=== PATIENT | female | born 1950 | race Caucasian/White ===

== ENCOUNTER → 2020-03-08 | Outpatient (CLI) | payer BC, MEDICARE ==
[~2020-03-08] MED LIST: KETOROLAC10 MG PO
== END ==
LOC: COL.RAD 09:21
DX: T84.53XA Infection and inflammatory reaction due to internal right knee prosthesis, initial encounter (principal); M86.8X6 Other osteomyelitis, lower leg; Z96.651 Presence of right artificial knee joint
CPT/HCPCS: A9503

== ENCOUNTER → 2020-05-25 | Outpatient (CLI) | payer BC, MEDICARE ==
[~2020-05-25] MED LIST changes: +ARICEPT 5MG PO; +ASPIRIN 81M81 MG/TA2 PO; +BLUE-EMU LIDOC1 EACH TP; +CENTRUM1 TA1 PO; +ILOTYCIN5 MG/GM; +LAMICTAL 25MG T25 MG PO; +LANTUS SOLOS100 U/ML SQ; +LYRICA 50MG CAP50 MG PO; +NOVOLOG FLEX100 U/ML SQ; +PREDNISONE20 MG PO; +PRINIVIL40 MG PO; +PROCARDIA XL 3030 MG PO; +PROVENTIL0.09 MG/A1 IH; +SINGULAIR 110 MG/TAB PO; +TAGAMET800 MG PO; +TOPROL XL 25MG25 MG PO; +TOPROL XL100 MG PO; +TRESIBA FL100 UNIT/1 SQ; +TYLENOL W/COD1 UDTAB PO; +UROCIT-K 1010 MEQ PO; +ZETIA 10MG TAB10 MG PO; +ZYRTEC 10MG10 MG PO
== END ==
LOC: COL.RAD 11:47
DX: G47.33 Obstructive sleep apnea (adult) (pediatric) (principal); Z99.89 Dependence on other enabling machines and devices; Z86.69 Personal history of other diseases of the nervous system and sense organs
CPT/HCPCS: A9585

== ENCOUNTER → 2020-06-20 | Outpatient (CLI) | payer BC, MEDICARE | LOC: COL.PUL 05-31 13:00 | DX: R06.02 Shortness of breath (principal) | CPT/HCPCS: J7674 ==

== ENCOUNTER 2020-07-27 11:17 | Inpatient (IN) | payer BC ==
[~2020-07-27] VITALS: Ht 149.9 cm; Wt 94.1 kg
[~2020-07-27 11:17] MED LIST changes: -ARICEPT 5MG PO; -ASPIRIN 81M81 MG/TA2 PO; -BLUE-EMU LIDOC1 EACH TP; -CENTRUM1 TA1 PO; -ILOTYCIN5 MG/GM; -LAMICTAL 25MG T25 MG PO; -LANTUS SOLOS100 U/ML SQ; -LYRICA 50MG CAP50 MG PO; -NOVOLOG FLEX100 U/ML SQ; -PREDNISONE20 MG PO; -PRINIVIL40 MG PO; -PROCARDIA XL 3030 MG PO; -PROVENTIL0.09 MG/A1 IH; -SINGULAIR 110 MG/TAB PO; -TAGAMET800 MG PO; -TOPROL XL 25MG25 MG PO; -TOPROL XL100 MG PO; -TRESIBA FL100 UNIT/1 SQ; -TYLENOL W/COD1 UDTAB PO; -UROCIT-K 1010 MEQ PO; -ZETIA 10MG TAB10 MG PO; -ZYRTEC 10MG10 MG PO
[2020-07-27 12:27] LABS: COLLECTION METHOD CLEAN CATCH
[2020-07-27 12:44] LABS: MUCOUS Present /lpf; PH 6 (5-8); URINE APPEARANCE Hazy; URINE BACTERIA None Seen /hpf; URINE BILIRUBIN Negative (NEGATIVE); URINE BLOOD 1+ (NEGATIVE); URINE COLOR Yellow; URINE GLUCOSE Negative (NEGATIVE); URINE KETONE Negative (NEGATIVE); URINE LEUKOCYTE ESTERASE 1+ (NEGATIVE); URINE NITRATE Negative (NEGATIVE); URINE PROTEIN(semi-quant) 2+ (NEGATIVE); URINE UROBILINOGEN Negative (NEGATIVE)
[2020-07-27 13:05] LABS: HEMATOCRIT 47.2 % (37.0-47.0); HEMOGLOBIN 15.7 g/dl (12.5-16.0); MEAN CELL VOLUME 94 fl (80.0-100.0); MEAN CORPUSCULAR HEMOGLOBIN 31 pg (27.0-31.0); MEAN CORPUSCULAR HGB CONC 33 g/dl (33.0-37.0); MEAN PLATELET VOLUME 10.2 fl (7.4-10.4); PLATELET COUNT 310 K/mm3 (130-400); RED BLOOD COUNT 5.04 M/mm3 (4.10-5.30)
[2020-07-27 13:18] LABS: ALANINE AMINOTRANSFERASE 30 U/L (4-34); ALBUMIN 4.7 gm/dL (3.5-5.0); ALKALINE PHOSPHATASE 85 U/L (50-136); ANION GAP 5 mmol/L (7-16); AST,SGOT 42 U/L (15-37); BILIRUBIN,TOTAL 0.9 mg/dL (0.0-1.0); BLOOD UREA NITROGEN 28 mg/dL (7-17); CALCIUM 9.5 mg/dL (8.4-10.2); CARBON DIOXIDE 29 mmol/L (22-30); CHLORIDE 108 mmol/L (98-107); CREATININE, serum 1.47 (0.52-1.25); GLUCOSE 57 mg/dL (74-106); POTASSIUM 4.2 mmol/L (3.4-5.0); SODIUM 141 mmol/L (137-145); TOTAL PROTEIN 8.1 gm/dL (6.4-8.2)
[2020-07-27 13:35] LABS: LYMPHOCYTE 8 % (20.0-51.0); NEUTROPHILS 80 % (42.0-75.2); PLATELET ESTIMATE NORMAL (NORMAL)
[2020-07-27 13:40] LABS: LIPASE 140 U/L (23-300)
[2020-07-27 13:41] LABS: C-REACTIVE PROTEIN < 0.5 mg/dL (0.0-0.9)
[2020-07-27] MEDS ORDERED: LANTUS SOLOS100 U/ML SQ (14:47)
[2020-07-27] MEDS ORDERED: LYRICA 50MG CAP50 MG PO (14:47)
[2020-07-27] MEDS ORDERED: ZYRTEC 10MG10 MG PO (14:48)
[2020-07-27] MEDS ORDERED: TAGAMET800 MG PO (14:48)
[2020-07-27] MEDS ORDERED: SINGULAIR 110 MG/TAB PO (14:48)
[2020-07-27] MEDS ORDERED: ILOTYCIN5 MG/GM (14:49)
[2020-07-27] MEDS ORDERED: ARICEPT 5MG PO (14:50)
[2020-07-27] MEDS ORDERED: ZETIA 10MG TAB10 MG PO (14:50)
[2020-07-27] MEDS ORDERED: PRINIVIL40 MG PO (14:51)
[2020-07-27] MEDS ORDERED: UROCIT-K 1010 MEQ PO (14:52)
[2020-07-27] MEDS ORDERED: PROCARDIA XL 3030 MG PO (14:53)
[2020-07-27] MEDS ORDERED: PROVENTIL0.09 MG/A1 IH (14:54)
[2020-07-27] MEDS ORDERED: NOVOLOG FLEX100 U/ML SQ (14:55)
[2020-07-27] MEDS ORDERED: TOPROL XL100 MG PO (14:56)
[2020-07-27] MEDS ORDERED: ASPIRIN 81M81 MG/TA2 PO (14:57)
[2020-07-27] MEDS ORDERED: CENTRUM1 TA1 PO (14:57)
[2020-07-27 17:28] VITALS: BP 129/71; PULSE 72; TEMP 99
--- NOTE | 2020-07-27 17:57 | NUR ---
PT PLEASANT, AOX4, STEADY WITH A CANE, HAS GLASSES, HELPED PT ORDER DINNER, REPORTS PAIN 3/10 IN L FLANK, NO OTHER NEEDS AT THIS TIME.
[2020-07-27 19:26] VITALS: BP 117/61; PULSE 73; TEMP 97.4
--- NOTE | 2020-07-27 20:00 | NUR ---
Report received, assumed care for hourly shift. Assessment complete. A&Ox3. Denies pain/nausea/shortness of breath VS stable. Right upper arm PICC with LR@125ml/hr infusing without difficulty. Plan of care discussed for this shift to include HS meds/pain control/calling for quesitons/concerns. Verbalizes understanding/denies needs. Call light in reach. Will monitor
--- NOTE | 2020-07-27 23:30 | NUR ---
pt has her own cpap but is refusing to wear it at this time
[2020-07-27 23:37] VITALS: BP 145/82; PULSE 76; TEMP 98
[2020-07-28 04:43] VITALS: BP 145/74; PULSE 64; TEMP 98.2
--- NOTE | 2020-07-28 05:51 | NUR ---
Rested off and on this shift. Refused to wear CPAP stating she doesnt like to wear it when she feels sick. O2@2L/NC during sleep to maintain O2 sats in the mmid 90s. Denied pain/nausea/shortness of breath. VS remained stable. Denies current needs. Call light in reach. Will monitor.
[2020-07-28 06:48] LABS: BASO # 0.1 (0.0-0.2); BASO % 0.6 % (0.0-2.0); EOS # 0.2 (0.0-0.7); EOS % 1.5 % (0-4.0); GRAN # 7.8 (1.4-6.5); GRAN % 69.2 % (42.2-75.2); HEMOGLOBIN 14.5 g/dl (12.5-16.0); LYMPH # 1.8 (1.2-3.4); LYMPH % 16.1 % (20.0-51.0); MEAN CELL VOLUME 96 fl (80.0-100.0); MEAN CORPUSCULAR HEMOGLOBIN 31 pg (27.0-31.0); MEAN CORPUSCULAR HGB CONC 32 g/dl (33.0-37.0); MEAN PLATELET VOLUME 10.9 fl (7.4-10.4); MONO # 1.4 (0.1-0.6); PLATELET COUNT 266 K/mm3 (130-400); RED BLOOD COUNT 4.71 M/mm3 (4.10-5.30); REDCELL DISTRIBUTION WIDTH-CV 13.1 % (11.5-14.5)
[2020-07-28 07:00] LABS: CALCIUM 8.5 mg/dL (8.4-10.2); CREATININE, serum 1.69 (0.52-1.25); POTASSIUM 4.1 mmol/L (3.4-5.0)
[2020-07-28 07:09] LABS: PHOSPHOROUS 3.4 mg/dL (2.5-4.5)
[2020-07-28 08:27] VITALS: BP 141/72; PULSE 74; TEMP 98.5
--- NOTE | 2020-07-28 10:22 | NUR ---
First visit from the sewing supervisor. No needs right now.
[2020-07-28 12:00] VITALS: BP 133/63; PULSE 64; TEMP 98.5
[2020-07-28 17:07] VITALS: BP 160/77; PULSE 69; TEMP 97.8
--- NOTE | 2020-07-28 19:15 | NUR ---
PT DENIES PAIN, N,V, PT REPORTS DIAHHREA HAS RESOLVED ON ITS OWN FROM THIS MORNING. FLUIDS INFUSING VIA PICC MISBAH, BED LOW. CALL LIGHT WITHIN REACH.
[2020-07-28 20:14] VITALS: BP 152/67; PULSE 70; TEMP 99.7
[2020-07-28 23:58] VITALS: BP 140/65; PULSE 80
--- NOTE | 2020-07-29 02:44 | NUR ---
PT IN BED. NO N/V. MORPHINE FOR PAIN TO LEFT FLANK. PT DENIES PAIN ON RIGHT SIDE R/T KIDNEY STONE.
[2020-07-29 03:53] VITALS: BP 144/61; PULSE 71; TEMP 98.8
--- NOTE | 2020-07-29 06:50 | NUR ---
Report with HAN Lovelace. Pt resting in bed with eyes closed, resp even and unlabored. IVF's infusing per orders. Call light in reach.
[2020-07-29 06:51] LABS: BASO # 0.1 (0.0-0.2); BASO % 0.6 % (0.0-2.0); EOS # 0.2 (0.0-0.7); EOS % 2.2 % (0-4.0); GRAN # 5.4 (1.4-6.5); GRAN % 65.9 % (42.2-75.2); HEMATOCRIT 39.9 % (37.0-47.0); LYMPH # 1.6 (1.2-3.4); LYMPH % 19.1 % (20.0-51.0); MEAN CELL VOLUME 97 fl (80.0-100.0); MEAN CORPUSCULAR HEMOGLOBIN 32 pg (27.0-31.0); MEAN CORPUSCULAR HGB CONC 33 g/dl (33.0-37.0); MEAN PLATELET VOLUME 10.6 fl (7.4-10.4); MONO % 11.8 % (1.7-9.3); PLATELET COUNT 183 K/mm3 (130-400); RED BLOOD COUNT 4.11 M/mm3 (4.10-5.30); REDCELL DISTRIBUTION WIDTH-CV 12.9 % (11.5-14.5)
[2020-07-29 07:12] LABS: CALCIUM 7.8 mg/dL (8.4-10.2); CREATININE, serum 1.31 (0.52-1.25); POTASSIUM 4.1 mmol/L (3.4-5.0)
[2020-07-29 07:29] VITALS: BP 148/65; PULSE 68; TEMP 98.3
--- NOTE | 2020-07-29 11:00 | NUR ---
Pt resting in bed with heat pack in place. Recently administered PRN Flexeril but pt requesting pain medication as well. PRN Morphine administered per orders. No further needs reported. Call light in reach.
--- NOTE | 2020-07-29 15:00 | NUR ---
Plan is to return home or go to a skilled placement. JOSR met in room with the patient and DTR Hortencia. Patient gave permission for me to discuss care information infront of DTR. Hortencia is . GUSTAVO is daughter Es but Hortencia is care support. Patient reports that she uses [facility] for medications. Dr. Marks is PCP, and other specialist is Dr. arteaga, Dr. Arevalo, Dr. Bailey. Patient reports that uses a cpap prn, cane prn. Patient shares that she is concerned with feeling tired and not received the care that she needs. Patient reports that she is in pain and does not believe it is being addressed. Patient indicated that her insulin is not being given the way she needs it. SW educated on services and complaint structure and notified her about speaking with the bunk house worker about her concerns. Notifed house to visit with her. Will continue to follow for care support.
[2020-07-29 16:33] VITALS: BP 159/62; PULSE 84; TEMP 98.3
--- NOTE | 2020-07-29 17:00 | NUR ---
Pt remains sitting up in chair with external catheter in place, denies pain or needs at this time. Supper being delivered soon. Pt with intermittent confusion that worsens when pt more tired. Otherwise uneventful shift. Call light in reach. Chair alarm on.
--- NOTE | 2020-07-29 18:30 | NUR ---
Sched abx administered per orders. Pt sitting up in bed, no facial grimace, resp even and unlabored. Pt reports pain medicine and heat pad have helped decrease flank pain. Otherwise uneventful shift. NO further needs reported. Call light in reach.
[2020-07-29 20:00] VITALS: BP 147/63; PULSE 80; TEMP 98.2
[2020-07-30] VITALS: BP 132/60; PULSE 70; TEMP 98.3
[2020-07-30 04:00] VITALS: BP 142/69; PULSE 84; TEMP 97.9
--- NOTE | 2020-07-30 06:13 | NUR ---
PT HAS RESTED QUIETLY/SLEPT MOST OF THE NIGHT. NO c/o PAIN. PT USED BiPAP ALL NIGHT. NO c/o NAUSEA.
[2020-07-30 06:42] LABS: CALCIUM 7.8 mg/dL (8.4-10.2); CREATININE, serum 1.19 (0.52-1.25); POTASSIUM 3.7 mmol/L (3.4-5.0)
[2020-07-30 07:26] VITALS: BP 163/67; PULSE 72; TEMP 98.3
[2020-07-30] MEDS ORDERED: BLUE-EMU LIDOC1 EACH TP (09:13)
--- NOTE | 2020-07-30 09:15 | NUR ---
Shift assessment complete. Resting in bed. A&Ox4. Heart RRR. Lungs CTA. Reports moderate left flank pain, lidocaine patch placed and declines other medications at this time. IV fluids stopped per orders. Right upper arm PICC w/s s/s complication, good blood return and flusehs easily. No further needs expressed. Continuing to monitor.
[2020-07-30 11:19] VITALS: BP 159/66; PULSE 79; TEMP 98.9
[2020-07-30 14:06] VITALS: BP 159/71; PULSE 86
[2020-07-30] MEDS ORDERED: TOPROL XL 25MG25 MG PO (14:49)
--- NOTE | 2020-07-30 15:45 | NUR ---
Discharge instructions discussed w/pt and daughter. All questions answered. HAN Valderrama at bedside at this time removing right upper arm PICC line.
--- NOTE | 2020-07-30 16:40 | NUR ---
Pt escorted out via wheelchair w/all belongings, accompanied by daughter.
--- NOTE | 2020-07-30 16:55 | NUR ---
Drafter (Cad) Electronic attended clinical rounds with the team and patient to discharge home today. SW met with patient who is hesitant about Home Health services, which are recommended, however is agreeable to try. JOSR provided Medicare.gov list of HH agencies and patient selected [facility]. JOSR faxed referral and orders to Margarito at [facility] who advised they can accept. JOSR contacted patient's daughter, Hortencia to discuss HH services and advise patient will discharge today. Hortencia is in agreement that HH services may benefit patient.
== END 2020-07-30 16:40 | disposition home health service (06) | DRG 690 ==
LOC: COL.ER 11:17 → MEDICAL 15:15
PROVIDERS: Family Medicine; Internal Medicine; ADMIT Emergency Medicine
PROC: 02HV33Z Insertion of Infusion Device into Superior Vena Cava, Percutaneous Approach (ICD-10-PCS; principal; 2020-07-27)
DX: N12 Tubulo-interstitial nephritis, not specified as acute or chronic (principal); E11.22 Type 2 diabetes mellitus with diabetic chronic kidney disease; E11.649 Type 2 diabetes mellitus with hypoglycemia without coma; I12.9 Hypertensive chronic kidney disease with stage 1 through stage 4 chronic kidney disease, or unspecified chronic kidney disease; N18.9 Chronic kidney disease, unspecified; G47.30 Sleep apnea, unspecified; R31.9 Hematuria, unspecified; E66.9 Obesity, unspecified; M79.18 Myalgia, other site; Z77.22 Contact with and (suspected) exposure to environmental tobacco smoke (acute) (chronic); Z20.822 Contact with and (suspected) exposure to COVID-19; Z79.82 Long term (current) use of aspirin; Z79.4 Long term (current) use of insulin; Z99.81 Dependence on supplemental oxygen; Z88.0 Allergy status to penicillin; Z88.2 Allergy status to sulfonamides
CPT/HCPCS: 99222-AI; 99232-AI; 99239; C1751; J1644; J1815; J1956; J2270; J2405; J7030; J7120

== ENCOUNTER → 2020-09-03 | Outpatient (CLI) | payer BC ==
[~2020-09-03] MED LIST changes: +ARICEPT 5MG PO; +ASPIRIN 81M81 MG/TA2 PO; +BLUE-EMU LIDOC1 EACH TP; +CENTRUM1 TA1 PO; +ILOTYCIN5 MG/GM; +LAMICTAL 25MG T25 MG PO; +LANTUS SOLOS100 U/ML SQ; +LYRICA 50MG CAP50 MG PO; +NOVOLOG FLEX100 U/ML SQ; +PREDNISONE20 MG PO; +PRINIVIL40 MG PO; +PROCARDIA XL 3030 MG PO; +PROVENTIL0.09 MG/A1 IH; +SINGULAIR 110 MG/TAB PO; +TAGAMET800 MG PO; +TOPROL XL 25MG25 MG PO; +TOPROL XL100 MG PO; +TRESIBA FL100 UNIT/1 SQ; +TYLENOL W/COD1 UDTAB PO; +UROCIT-K 1010 MEQ PO; +ZETIA 10MG TAB10 MG PO; +ZYRTEC 10MG10 MG PO
== END ==
LOC: COL.CARD 09:56
DX: R41.89 Other symptoms and signs involving cognitive functions and awareness (principal); G47.33 Obstructive sleep apnea (adult) (pediatric); Z99.89 Dependence on other enabling machines and devices; Z86.69 Personal history of other diseases of the nervous system and sense organs

== ENCOUNTER → 2020-10-02 | Outpatient (CLI) | payer MEDICARE | LOC: MC.RAD 15:53 | DX: Z12.31 Encounter for screening mammogram for malignant neoplasm of breast (principal) ==

== ENCOUNTER 2020-10-08 20:47 | Emergency (ER) | payer MEDICARE ==
[~2020-10-08] VITALS: Ht 154.9 cm; Wt 93.2 kg
[~2020-10-08 20:47] MED LIST changes: -LAMICTAL 25MG T25 MG PO; -PREDNISONE20 MG PO; -TRESIBA FL100 UNIT/1 SQ; -TYLENOL W/COD1 UDTAB PO
[2020-10-08 20:58] VITALS: TEMP 100.7
[2020-10-08 21:41] LABS: BASO # 0.1 (0.0-0.2); BASO % 0.7 % (0.0-2.0); EOS # 0.6 (0.0-0.7); EOS % 5.1 % (0-4.0); GRAN # 8.3 (1.4-6.5); GRAN % 77.8 % (42.2-75.2); HEMOGLOBIN 11.7 g/dl (12.5-16.0); LYMPH # 0.9 (1.2-3.4); LYMPH % 8.1 % (20.0-51.0); MEAN CELL VOLUME 100 fl (80.0-100.0); MEAN CORPUSCULAR HEMOGLOBIN 32 pg (27.0-31.0); MEAN CORPUSCULAR HGB CONC 32 g/dl (33.0-37.0); MEAN PLATELET VOLUME 10.7 fl (7.4-10.4); MONO # 0.8 (0.1-0.6); MONO % 7.8 % (1.7-9.3); PLATELET COUNT 194 K/mm3 (130-400); RED BLOOD COUNT 3.68 M/mm3 (4.10-5.30); REDCELL DISTRIBUTION WIDTH-CV 13.3 % (11.5-14.5)
[2020-10-08 21:42] LABS: HEMATOCRIT 36.6 % (37.0-47.0)
[2020-10-08 22:02] LABS: ALANINE AMINOTRANSFERASE 19 U/L (4-34); ALKALINE PHOSPHATASE 65 U/L (50-136); ANION GAP 8 mmol/L (7-16); AST,SGOT 28 U/L (15-37); BILIRUBIN,TOTAL 0.4 mg/dL (0.0-1.0); BLOOD UREA NITROGEN 21 mg/dL (7-17); CALCIUM 7.9 mg/dL (8.4-10.2); CARBON DIOXIDE 22 mmol/L (22-30); CHLORIDE 111 mmol/L (98-107); CREATININE, serum 1.26 (0.52-1.25); GLUCOSE 195 mg/dL (74-106); POTASSIUM 4.2 mmol/L (3.4-5.0); SODIUM 140 mmol/L (137-145)
[2020-10-08 22:15] LABS: TROPONIN-I < 0.012 ng/mL (0.000-0.035)
[2020-10-08 22:25] LABS: C-REACTIVE PROTEIN 3.9 mg/dL (0.0-0.9)
[2020-10-08 23:44] LABS: COLLECTION METHOD CLEAN CATCH
[2020-10-08 23:50] LABS: MUCOUS Present /lpf; PH 5 (5-8); URINE APPEARANCE Clear; URINE BACTERIA None Seen /hpf; URINE BILIRUBIN Negative (NEGATIVE); URINE BLOOD Negative (NEGATIVE); URINE COLOR Yellow; URINE GLUCOSE 1+ (NEGATIVE); URINE KETONE Negative (NEGATIVE); URINE LEUKOCYTE ESTERASE Trace (NEGATIVE); URINE NITRATE Negative (NEGATIVE); URINE PROTEIN(semi-quant) 1+ (NEGATIVE); URINE RBC 0-2 /hpf; URINE UROBILINOGEN Negative (NEGATIVE)
[2020-10-09] MEDS ORDERED: PREDNISONE20 MG PO (00:08)
[2020-10-09 00:16] VITALS: BP 144/70; PULSE 80
== END 2020-10-09 00:16 | disposition home or self-care (01) ==
LOC: COL.ER 20:47
PROVIDERS: Nurse Practitioner
DX: R50.9 Fever, unspecified (principal); J45.909 Unspecified asthma, uncomplicated; I10 Essential (primary) hypertension; E11.9 Type 2 diabetes mellitus without complications; Z79.899 Other long term (current) drug therapy; Z79.4 Long term (current) use of insulin; Z20.822 Contact with and (suspected) exposure to COVID-19
CPT/HCPCS: J2930; J7120

== ENCOUNTER 2020-12-16 12:31 | Emergency (ER) | payer MEDICARE ==
[~2020-12-16] VITALS: Ht 152.4 cm; Wt 91.8 kg
[~2020-12-16 12:31] MED LIST changes: +PREDNISONE20 MG PO
[2020-12-16 12:49] VITALS: TEMP 97.9
[2020-12-16 13:11] LABS: BASO # 0.1 K/mm3 (0.0-0.2); BASO % 1.1 % (0.0-2.0); EOS # 0.5 K/mm3 (0.0-0.7); EOS % 5.9 % (0-4.0); GRAN # 5.3 K/mm3 (1.4-6.5); GRAN % 66.1 % (42.2-75.2); HEMATOCRIT 46.2 % (37.0-47.0); HEMOGLOBIN 15.1 g/dl (12.5-16.0); LYMPH # 1.4 K/mm3 (1.2-3.4); LYMPH % 17.5 % (20.0-51.0); MEAN CELL VOLUME 97 fl (80.0-100.0); MEAN CORPUSCULAR HEMOGLOBIN 32 pg (27.0-31.0); MEAN CORPUSCULAR HGB CONC 33 g/dl (33.0-37.0); MEAN PLATELET VOLUME 10.4 fl (7.4-10.4); MONO # 0.7 K/mm3 (0.1-0.6); MONO % 9.2 % (1.7-9.3); PLATELET COUNT 295 K/mm3 (130-400); RED BLOOD COUNT 4.75 M/mm3 (4.10-5.30); REDCELL DISTRIBUTION WIDTH-CV 13.2 % (11.5-14.5)
[2020-12-16 13:26] LABS: C-REACTIVE PROTEIN 0.29 mg/dL (0.00-0.50); CALCIUM 10.3 mg/dL (8.4-10.2); CREATININE, serum 1.79 mg/dL (0.57-1.11); POTASSIUM 4.6 mmol/L (3.5-4.5)
[2020-12-16] MEDS ORDERED: LAMICTAL 25MG T25 MG PO (13:30)
[2020-12-16] MEDS ORDERED: TRESIBA FL100 UNIT/1 SQ (13:30)
[2020-12-16 13:49] LABS: ERYTHROCYTE SEDIMENTATION RATE 8 mm/hr (0-30)
[2020-12-16] MEDS ORDERED: TYLENOL W/COD1 UDTAB PO (15:04)
[2020-12-16 15:19] VITALS: BP 120/66; PULSE 64
== END 2020-12-16 15:22 | disposition home or self-care (01) ==
LOC: COL.ER 12:31
PROVIDERS: Emergency Medicine
DX: M25.561 Pain in right knee (principal); I10 Essential (primary) hypertension; J45.909 Unspecified asthma, uncomplicated; E11.9 Type 2 diabetes mellitus without complications; M17.11 Unilateral primary osteoarthritis, right knee; Z96.698 Presence of other orthopedic joint implants; Z98.890 Other specified postprocedural states; Z79.4 Long term (current) use of insulin; Z79.899 Other long term (current) drug therapy

== ENCOUNTER → 2021-11-04 | Outpatient (CLI) | payer MEDICARE ==
[~2021-11-04] MED LIST changes: +LAMICTAL 25MG T25 MG PO; +TRESIBA FL100 UNIT/1 SQ; +TYLENOL W/COD1 UDTAB PO
== END ==
LOC: MC.RAD 10:08
DX: Z12.31 Encounter for screening mammogram for malignant neoplasm of breast (principal)